=== PATIENT | female | born 1945 | race Caucasian/White ===

== ENCOUNTER 2019-03-01 13:45 | Emergency (ER) | payer MEDICARE, BC ==
[~2019-03-01] VITALS: Ht 157.5 cm; Wt 88.1 kg
[~2019-03-01 13:45] MED LIST: APIX5TAB3 PO; DIPH-423 PO; HYDR25TA4 PO; METF-438 PO; METO-395 PO; MULT1TAB74 PO; OLME40TA18 PO; SIMV20TA PO
[2019-03-01 13:58] VITALS: BP 135/72
== END 2019-03-01 15:18 | disposition home or self-care (01) ==
LOC: ER 13:46
DX: H11.31 Conjunctival hemorrhage, right eye (principal); I48.91 Unspecified atrial fibrillation; I10 Essential (primary) hypertension; E11.9 Type 2 diabetes mellitus without complications; Z98.890 Other specified postprocedural states; Z85.3 Personal history of malignant neoplasm of breast; Z88.8 Allergy status to other drugs, medicaments and biological substances; Z88.5 Allergy status to narcotic agent; Z88.1 Allergy status to other antibiotic agents; Z79.82 Long term (current) use of aspirin; Z79.84 Long term (current) use of oral hypoglycemic drugs; Z79.899 Other long term (current) drug therapy
CPT/HCPCS: 99281

== ENCOUNTER 2022-06-05 07:46 | Day surgery (SDC) | payer BC ==
[2022-05-30 09:41] LABS: BASOPHILS # (AUTO) 0.1 X10'3 (0-0.2); EOSINOPHILS # (AUTO) 0.1 X10'3 (0-0.9); EOSINOPHILS % (AUTO) 2.5 % (0-6); HEMATOCRIT 43.9 % (35.0-45.0); HEMOGLOBIN 14.7 g/dl (12.0-16.0); LYMPHOCYTES # (AUTO) 0.9 X10'3 (1.1-4.8); LYMPHOCYTES % (AUTO) 18.3 % (21-51); MEAN CORPUSCULAR HEMOGLOBIN 29.6 PG (27.0-31.0); MEAN CORPUSCULAR HGB CONC 33.6 g/dL (33.0-36.5); MEAN CORPUSCULAR VOLUME 88.2 FL (78-98); MEAN PLATELET VOLUME 8.8 FL (7.4-10.4); MONOCYTES # (AUTO) 0.4 X10'3 (0-0.9); MONOCYTES % (AUTO) 8.4 % (2-12); NEUTROPHILS # (AUTO) 3.6 X10'3 (1.8-7.7); NEUTROPHILS % (AUTO) 69.8 % (42-75); PLATELET COUNT 182 X10'3 (140-440); RED BLOOD COUNT 4.97 X10'6 (4.20-5.60); RED CELL DISTRIBUTION WIDTH 15.2 % (11.5-14.5); WHITE BLOOD COUNT 5.1 X10'3 (4.5-11.0)
[2022-05-30 09:50] LABS: APTT 40 SECONDS (22-32)
[2022-05-30 09:57] LABS: ALANINE AMINOTRANSFERASE 30 U/L (12-78); ALBUMIN 3.4 G/DL (3.4-5.0); ALBUMIN/GLOBULIN RATIO 0.9 (1.1-1.5); ALKALINE PHOSPHATASE 81 IU/L (46-116); ANION GAP 8 (8-16); ASPARTATE AMINO TRANSFERASE 17 U/L (10-37); BILIRUBIN,TOTAL 0.4 MG/DL (0.1-1.0); BLOOD UREA NITROGEN 18 MG/DL (7-18); BUN/CREATININE RATIO 15.9 (6.6-38.0); CALCIUM 9.3 MG/DL (8.5-10.1); CHLORIDE 104 MMOL/L (99-107); CREATININE 1.13 MG/DL (0.40-0.90); GLUCOSE 175 MG/DL (70-104); POTASSIUM 3.8 MMOL/L (3.5-5.1); SODIUM 140 MMOL/L (135-145); TOTAL CARBON DIOXIDE 28.3 MMOL/L (24-32); TOTAL PROTEIN 7.2 G/DL (6.4-8.2); eGFR 47 ML/MIN
[2022-06-05] VITALS (13 sets, daily range): BP systolic 133–178; BP diastolic 68–80
[~2022-06-05] VITALS: Ht 160 cm; Wt 86.8 kg
[~2022-06-05 07:46] MED LIST changes: +MULT-620 PO; -MULT1TAB74 PO; +SIMV-342 PO; -SIMV20TA PO
[2022-06-05] MEDS ORDERED: diphenhydrAMINE 25mg capsule PO PRN (08:05)
[2022-06-05] MEDS ORDERED: nitroGLYCERIN 0.4mg SUBLingual tab SL PRN ×2 (08:05→12:15)
[2022-06-05] MEDS ORDERED: LORazepam 0.5 MG tablet PO PRN (08:05)
[2022-06-05] MEDS ORDERED: normal saline 1,000 ML IV SCH (08:05)
[2022-06-05] MEDS ORDERED: WARF-55 PO (08:35)
[2022-06-05] MEDS ORDERED: EMPA1TAB34 (08:35)
[2022-06-05] MEDS ORDERED: NITR0.4T51 SL (09:06)
[2022-06-05] MEDS ORDERED: VITAMIN D3 PO (09:06)
[2022-06-05] MEDS ORDERED: MULT-1141 PO (09:06)
[2022-06-05] MEDS ORDERED: METO-539 PO (09:06)
[2022-06-05] MEDS ORDERED: MAGN250T11 PO (09:13)
[2022-06-05] MEDS ORDERED: ACET-1025 PO (09:13)
[2022-06-05] MEDS ORDERED: FISH OIL (09:13)
[2022-06-05 10:34] LABS: HEMOGLOBIN A1C 8.6 % (4.5-6.2)
[2022-06-05] MEDS ORDERED: LIDOcaine 1%/PF 5ML 10 MG/ML VIAL ONE ×2 (10:42→10:44)
[2022-06-05] MEDS ORDERED: midazolam 1 mg/ML 2ml injection ONE (10:42)
[2022-06-05] MEDS ORDERED: fentaNYL/PF 50MCG/1 ML 2ML syringe ONE (10:43)
[2022-06-05] MEDS ORDERED: iohexol 350MG/ML 100ml bottle IV ONE (10:43)
[2022-06-05] MEDS ORDERED: ondansetron/PF 4mg/2ml inj IV PRN (12:15)
[2022-06-05] MEDS ORDERED: OXAZEpam 15mg capsule PO PRN (12:15)
[2022-06-05] MEDS ORDERED: normal saline 1000ml 1,000 ML IV SCH (12:15)
[2022-06-05] MEDS ORDERED: proCHLORperazine 10 MG/2 ml inj IV PRN (12:15)
--- NOTE | 2022-06-05 12:15 | NUR ---
Pt eating sandwich and drinking soda without problems. Daughter at bedside helping pt eat.
--- NOTE | 2022-06-05 13:25 | NUR ---
Adams cath inserted due to pt immobility for post cath procedure and frequency of requiring bedpan for urination.
--- NOTE | 2022-06-05 17:00 | NUR ---
[place] cath DC without issues. 800ml clear yellow urine in esc[place].
--- NOTE | 2022-06-05 17:27 | NUR ---
Written and verbal DC instructions given to pt and daughter. Pt sitting up in bed 90 degrees, right groin site stable, no bleeding bruising or hematoma noted.
== END 2022-06-05 18:05 | disposition home or self-care (01) ==
LOC: SSTAY O 07:46
PROVIDERS: ATTEND Internal Medicine Cardiovascular Disease
DX: R94.39 Abnormal result of other cardiovascular function study (principal); I25.10 Atherosclerotic heart disease of native coronary artery without angina pectoris; E78.5 Hyperlipidemia, unspecified; I48.0 Paroxysmal atrial fibrillation; E11.9 Type 2 diabetes mellitus without complications; I10 Essential (primary) hypertension; Z85.3 Personal history of malignant neoplasm of breast; Z79.899 Other long term (current) drug therapy; Z79.01 Long term (current) use of anticoagulants
CPT/HCPCS: 36415; 71046; 80053; 82948; 83036; 83880; 84484; 85025; 85610; 85730; 93005; 93458; 99152; C1769; J1644; J2250; J3010; J3490; J7030; Q0163; Q9967; 99153; A4314; A4620; A6258